=== PATIENT | female | born 1975 | race Caucasian/White ===

== ENCOUNTER → 2020-11-21 | Outpatient (CLI) | payer OTHER ==
--- NOTE | 2020-11-21 17:23 | RAD ---
Examination: US PELVIS W/TV History: Fibroids; Dysmenorrhea; Menorrhagia / History: Comparison/Correlation: None Findings: Transabdominal and transvaginal pelvic ultrasonogram was performed. Transvaginal technique was utilized better assess the adnexal structures. Uterus measures 9.37 x 7.0 cm x 4.4 centimeters. A fibroid is present at the superior right myometriu m measuring up to 1 cm diameter. At the posterior left myometrium, there is a 0.6 cm diameter fibroid .. Endometrial thickness of up to 0.7 cm is present. No fluid within the uterine cavity. Right ovary measures 2 cm x 1.9 cm x 1.7 cm . Left ovary measures 2.9 cm x 2.2 cm x 1.77. Normal ovar agustina flow evident. No brain masses. No pelvic free fluid. Impression: Small fibroids involving the myometrium. Electronically signed by: Cyril Hou MD (11/21/2020 5:20 PM) [id number]
== END ==
LOC: US 14:37
PROVIDERS: ATTEND Obstetrics & Gynecology
DX: D26.1 Other benign neoplasm of corpus uteri (principal); N94.6 Dysmenorrhea, unspecified; N92.0 Excessive and frequent menstruation with regular cycle
CPT/HCPCS: 76830; 76856

== ENCOUNTER → 2021-03-07 | Outpatient (CLI) | payer OTHER | LOC: MAMMO 15:29 | PROVIDERS: ATTEND Obstetrics & Gynecology | DX: Z12.31 Encounter for screening mammogram for malignant neoplasm of breast (principal) | CPT/HCPCS: 77063; 77067 ==

== ENCOUNTER 2021-10-15 15:55 | Emergency (ER) | payer OTHER ==
[~2021-10-15] VITALS: Ht 160 cm; Wt 63.6 kg
--- NOTE | 2021-10-15 16:08 | PHYS DOC ---
General Adult EDM: Chief Complaint: LOWER EXT PAIN HPI: HPI: Patient is a 46-year-old female here with left calf pain. She reports that she was walking and noticed some pain, but she has been able to ambulate without difficulty and did notice any severe pain until today, at work when she was walking and felt a "pop." She reports painful ambulation and painful weightbearing since then. She denies knee pain, thigh pain, hip pain. She denies ankle or foot pain. She denies any direct trauma or injury. When she palpates her calf, she feels pain. No swelling, redness or bruising reported. No chest pain or dyspnea reported. No numbness or tingling or motor weakness reported. Review of Systems: Review of Systems: Constitutional: Denies fever or chills Respiratory: Denies cough or shortness of breath Cardiovascular: Denies chest pain or edema GI: Denies abdominal pain, nausea, vomiting Musculoskeletal: Denies back pain or joint pain. Reports left calf pain. No swelling. Integument: Denies rash, no redness or bruising. Neurologic: Denies headache, focal weakness or sensory changes Psychiatric: Denies depression or anxiety Allergies: Allergies: Allergies Coded Allergies Type Severity Reaction Last Updated Verified No Known Drug Allergies 10/15/21 No Physical Exam: PE: Constitutional: Well developed, well nourished, no acute distress, non-toxic appearance. [] HENT: Normocephalic, atraumatic Neck: Trachea midline Cardiovascular: Well-perfused appearing, +2 dorsalis pedis and +2 posterior tibial pulses bilaterally. Lungs & Thorax: Respirations are nonlabored Skin: Warm, dry, no erythema, no rash. No bruising or swelling noted. Extremities: No deformity. Pelvis is stable. No knee tenderness. No bony tenderness. Mid soft tissue calf tenderness is noted. No palpable mass. No palpable cord. No warmth, erythema, no contusion, no hematoma. She is able to fully flex and extend her foot and ankle without difficulty. Prescott test normal. No ligamentous laxity or deformity of her knee, ankle or foot or digits. Neurologic: Alert and oriented X 3, normal motor function, normal sensory function, no focal deficits noted. [] Psychologic: Affect normal, judgement normal, mood normal. [] EKG: EKG: [] Radiology/Procedures: Radiology/Procedures: IMAGING REPORT Signed PATIENT: QUIN ANNA ACCOUNT: [id number] : 1975 LOCATION: ER AGE: 46 SEX: F EXAM STATUS: REG ER ORD. PHYSICIAN: MANNY RAINEY DO REASON: LLE pain PROCEDURE: VENOUS LOWER EXTREMITY LEFT INDICATION: Reason: LLE pain / Spl. Instructions: / History: COMPARISON: None. TECHNIQUE: Grayscale, color and doppler ultrasound images were obtained of the left lower extremity venous vasculature. LEFT: No thrombus identified in the common femoral vein, femoral vein, popliteal vein or visualized calf veins. IMPRESSION: * No thrombus identified in deep venous system of the left lower extremity. Electronically signed by: Linda Zhong MD (10/15/2021 4:56 PM) DESKTOP- [id number] DICTATED AND SIGNED BY: LINDA ZHONG MD DATE: 10/15/21 1654 CC: MANNY RAINEY DO; AILEEN GREENE DO, [facility] ~MTH0 0 Heart Score: C/O Chest Pain: No Risk Factors: Risk Factors: DM, Current or recent (<one month) smoker, HTN, HLP, family history of CAD, obesity. Risk Scores: Score 0 - 3: 2.5% MACE over next 6 weeks - Discharge Home Score 4 - 6: 20.3% MACE over next 6 weeks - Admit for Clinical Observation Score 7 - 10: 72.7% MACE over next 6 weeks - Early Invasive Strategies Course & Med Decision Making: Course & Med Decision Making Pertinent Labs and Imaging studies reviewed. (See chart for details) P.o. Stilwell given for pain. I discussed the findings, differential diagnosis and plan of care with her. I explained that I strongly suspect gastrocnemius tear. I recommend she follow-up with her primary care physician. She has a scheduled appointment on October 27 to see her PCP I told her to discuss outpatient MRI at that time, if symptoms persist. In the meantime, she should adhere to [facility] care. Will prescribe a small amount of her co for discharge. She may take [id number] NSAIDs as well. No current indication for further imaging, invasive exams or admission based on current presentation. Return precautions are given. Dragon Disclaimer: Dragon Disclaimer: This electronic medical record was generated, in whole or in part, using a voice recognition dictation system. Departure Departure: Impression: Primary Impression: Strain of left calf muscle Disposition: HOME / SELF CARE / HOMELESS Condition: STABLE Referrals: AILEEN GREENE DO, [facility] (PCP) Patient Instructions: Muscle Strain Additional Instructions: Use the medication as needed/as directed. Ice, rest and elevate your lower extremity. Return for severe swelling, redness, bruising, temperature 100.4 or higher, more severe uncontrolled pain or any other concerns. You likely have a tear of your gastrocnemius/calf muscle. Please keep your scheduled appointment with your primary care physician on October 27, you may wish to discuss outpatient MRI at that time if symptoms are still present. Scripts Hydrocodone Bit/Acetaminophen (HYDROCODONE-APAP 5-325 ) 1 Each Tablet 1 TAB PO PRN Q6HRS PRN for PAIN, #15 TAB 0 Refills Prov: MANNY RAINEY DO 10/15/21 MANNY RAINEY DO Oct 15, 2021 16:08
[2021-10-15] MEDS ORDERED: HYDROcodone/APAP 5/325MG 1 TAB TABLET PO ONE (16:30)
--- NOTE | 2021-10-15 16:58 | RAD ---
INDICATION: Reason: LLE pain / Spl. Instructions: / History: COMPARISON: None. TECHNIQUE: Grayscale, color and doppler ultrasound images were obtained of the left lower extremity v enous vasculature. LEFT: No thrombus identified in the common femoral vein, femoral vein, popliteal vein or visualized calf ve ins. IMPRESSION: * No thrombus identified in deep venous system of the left lower extremity. Electronically signed by: Alberto Bragg MD (10/15/2021 4:56 PM) [id number]
[2021-10-15] MEDS ORDERED: HYDR-2155 PO (17:29)
[2021-10-15 17:50] VITALS: BP 114/71
== END 2021-10-15 17:50 | disposition home or self-care (01) ==
LOC: ER 15:55
DX: S86.912A Strain of unspecified muscle(s) and tendon(s) at lower leg level, left leg, initial encounter (principal); X50.9XXA Other and unspecified overexertion or strenuous movements or postures, initial encounter; Y93.01 Activity, walking, marching and hiking; Y92.89 Other specified places as the place of occurrence of the external cause; Y99.8 Other external cause status
CPT/HCPCS: 93971; 99284

== ENCOUNTER 2022-02-21 09:45 | Emergency (ER) | payer OTHER ==
[~2022-02-21] VITALS: Ht 160 cm; Wt 66.4 kg
[~2022-02-21 09:45] MED LIST: HYDR-2155 PO
[2022-02-21] MEDS ORDERED: ONDANSETRON PF 4 MG/2 ML VIAL. IVP ONE (10:30)
[2022-02-21] MEDS ORDERED: IV NORMAL SALINE 1,000ML 1,000 ML IV ONE (10:30)
--- NOTE | 2022-02-21 11:01 | PHYS DOC ---
Past History Additional Past Medical Histor: HIRSUTISM Past Surgical History: Tubal ligation, Other Additional Past Surgical Histo: R SHOULDER; KIDNEY STONE REMOVED; WISDOM TOOTH Alcohol Use: Occasionally General Adult EDM: Chief Complaint: NAUSEA/VOMITING/DIARRHEA HPI: HPI: Patient is a 46-year-old female who presents with nausea/vomiting/diarrhea since Wednesday. Patient reports generalized abdominal pain. "I am not sure from having pain or if it is from the nausea and diarrhea". Patient reports she has vomited 4 times since Wednesday. Patient reports having diarrhea multiple times a day. Denies recent illness or antibiotics. Denies recent exposure to illness. denies fever. Patient reports taking Dramamine at home with no relief of symptoms. Decrease in appetite. History of anxiety and depression. Denies tobacco or drug use. Patient been fully vaccinated for COVID-19. Review of Systems: Review of Systems: ROS At least 10 ROS systems have been reviewed and are negative except as documented in the HPI. General: Negative except as outlined in HPI above. Skin: Negative except as outlined in HPI above. HEENT: Negative except as outlined in HPI above. Neck: Negative except as outlined in HPI above. Respiratory: Negative except as outlined in HPI above.. Cardiovascular: Negative except as outlined in HPI above. Abdomen: Negative except as outlined in HPI above. : Negative except as outlined in HPI above. Back/MSK: Negative except as outlined in HPI above. Neuro: Negative except as outlined in HPI above. Psych: Negative except as outlined in HPI above. Current Medications: Current Meds: Current Medications Medications (Trade) Dose Ordered Sig/Karyna Start Time Stop Time Status Last Admin Dose Admin Ondansetron HCl (Zofran) 4 mg 1X ONCE 02/21/22 10:30 02/21/22 10:31 DC Sodium Chloride 1,000 ml @ 1,000 mls/hr 1X ONCE 02/21/22 10:30 02/21/22 11:29 Allergies: Allergies: Allergies Coded Allergies Type Severity Reaction Last Updated Verified No Known Drug Allergies 10/15/21 No Physical Exam: PE: Constitutional: Well developed, well nourished, no acute distress, non-toxic appearance. [] HENT: bilateral external ears normal, oropharynx moist, no oral exudates, nose normal. [] Eyes: conjunctiva normal, no discharge. [] Neck: Normal range of motion, no tenderness, supple, no stridor. [] Cardiovascular:Heart rate regular rhythm, no murmur [] Lungs & Thorax: Bilateral breath sounds clear to auscultation [] Abdomen: Bowel sounds normal, soft, generalized tenderness on palpation Skin: Warm, dry, no erythema, no rash. [] Back: No tenderness, no CVA tenderness. [] Extremities: no clubbing, ROM intact, no edema. [] Neurologic: Alert and oriented X 3, normal motor function, normal sensory function, no focal deficits noted. [] Psychologic: Affect normal, judgement normal, mood normal. [] Current Patient Data: Vital Signs: Vital Signs Date Time Temp Pulse Resp B/P (MAP) Pulse Ox O2 Delivery O2 Flow Rate FiO2 02/21/22 09:45 97.5 75 16 106/61 (76) 100 Room Air EKG: EKG: [] Radiology/Procedures: Radiology/Procedures: [] Heart Score: C/O Chest Pain: No Risk Factors: Risk Factors: DM, Current or recent (<one month) smoker, HTN, HLP, family history of CAD, obesity. Risk Scores: Score 0 - 3: 2.5% MACE over next 6 weeks - Discharge Home Score 4 - 6: 20.3% MACE over next 6 weeks - Admit for Clinical Observation Score 7 - 10: 72.7% MACE over next 6 weeks - Early Invasive Strategies Course & Med Decision Making: Course & Med Decision Making Pertinent Labs and Imaging studies reviewed. (See chart for details) [] 46-year-old female presents with nausea/vomiting/diarrhea since Wednesday. Work-up in ER consisted of CBC, CMP, lipase, urinalysis. Patient given Zofran to help with symptoms. All labs unremarkable. Urine negative for infection. Patient still reporting abdominal pain. Patient given Bentyl and morphine to help with discomfort. CT abdomen pelvis ordered which was unremarkable. No acute findings. Discussed results with patient. Advised patient to take ibuprofen and Tylenol at home. Discussed return precautions at length with patient. Patient verbalized understanding of discharge instructions. Patient most likely has gastroenteritis which is contributing to her vomiting and diarrhea. Dragon Disclaimer: Dimitry Disclaimer: This electronic medical record was generated, in whole or in part, using a voice recognition dictation system. Departure Departure: Impression: Primary Impression: Nausea Additional Impression: Diarrhea Qualified Codes: R19.7 - Diarrhea, unspecified Disposition: HOME / SELF CARE / HOMELESS Referrals: AILEEN GREENE DO, [facility] (PCP) Patient Instructions: Diarrhea, [id number] Additional Instructions: You were seen in the emergency room for nausea and diarrhea. Symptoms were treated while in the ER. Sending you home with nausea medication. Return to the emergency room if you have worsening symptoms or concerns such as uncontrollable vomiting, increasing abdominal pain, uncontrolled fever. Otherwise follow-up with your PCP on Wednesday if symptoms have not improved. EMERGENCY DEPARTMENT GENERAL DISCHARGE INSTRUCTIONS Thank you for coming to [facility] (ED) today and trusting us with you care. We trust that you had a positivie experience in our Emergency Department. If you wish to speak to the department management, you may call the director at [phone]. YOUR FOLLOW UP INSTRUCTIONS ARE FOLLOWS: 1. Do you have a private Doctor? If you do not have a private doctor, please ask for a resource list of physicians or clinics that may be able to assist you with follow up care. 2. The Emergency Physician has interpreted your x-rays. The X-Ray specialist will also review them. If there is a change in the findings, you will be notified in 48 hours when at all possible. 3. A lab test or culture has been done, your results will be reviewed and you will be notified if you need a change in treatment. ADDITIONAL INSTRUCTIONS AND INFORMATION: 1. Your care today has been supervised by a physician who is specially trained in emergency care. Many problems require more than one evaluation for a complete diagnosis and treatment. We recommend that you schedule your follow up appointment as recommended to ensure complete treatment of you illness or injury. If you are unable to obtain follow up care and continue to have a problem, or if your condition worsens, we recommend that you return to the ED. 2. We are not able to safely determine your condition over the phone nor are we able to give sound medical advice over the phone. For these safety reasons, if you call for medical advice we will ask you to come to the ED for further evaluation. 3. If you have any questions regarding these discharge instructions please call the ED at [phone]. SAFETY INFORMATION: In the interest of safety, wellness, and injury prevention; we encourage you to wear your sealbelt, if you smoke; quite smoking, and we encourage family to use a protective helmet for bicycling and other sporting events that present an increased risk for head injury. IF YOUR SYMPTOMS WORSEN OR NEW SYMPTOMS DEVELOP, OR YOU HAVE CONCERNS ABOUT YOUR CONDITION; OR IF YOUR CONDITION WORSENS WHILE YOU ARE WAITING FOR YOUR FOLLOW UP APPOINTMENT; EITHER CONTACT YOUR PRIMARY CARE DOCTOR, THE PHYSICIAN WHOSE NAME AND NUMBER YOU WERE GIVEN, OR RETURN TO THE ED IMMEDIATELY. Scripts Ondansetron (ONDANSETRON ODT) 4 Mg Tab.rapdis 1 TAB PO PRN Q6-8HRS for nausea for 5 Days, #16 TAB Prov: ELSA COCHRAN APRN 02/21/22 ELSA COCHRAN APRN Feb 21, 2022 11:01
[2022-02-21 11:53] LABS: BASO # 0.1 x10^3/uL (0.0-0.2); BASO % 1 % (0-3); EOS % 0 % (0-3); HEMATOCRIT 43.4 % (36.0-47.0); LYMPH # 0.4 x10^3/uL (1.0-4.8); LYMPH % 6 % (24-48); MEAN CORPUSCULAR HEMOGLOBIN 32 pg (25-35); MEAN CORPUSCULAR HGB CONC 35 g/dL (31-37); MEAN CORPUSCULAR VOLUME 92 fL (79-100); MONO # 0.5 x10^3/uL (0.0-1.1); MONO % 8 % (0-9); NEUT # 4.9 x10^3uL (1.8-7.7); NEUT % 84 % (31-73); PLATELET COUNT 253 x10^3/uL (140-400); RED BLOOD COUNT 4.71 x10^6/uL (3.50-5.40); RED CELL DISTRIBUTION WIDTH 12.2 % (11.5-14.5); WHITE BLOOD COUNT 5.8 x10^3/uL (4.0-11.0)
[2022-02-21 12:01] LABS: CLARITY,URINE HAZY; COLOR,URINE YELLOW
[2022-02-21 12:02] LABS: BACTERIA,URINE 0 /HPF (0-FEW); GLUCOSE,URINE NEG (NEG); NITRITE,URINE NEG (NEG); RBC,URINE 0 /HPF (0-2); SQUAMOUS EPITHELIAL CELL,UR OCC /LPF; WBC,URINE 0 /HPF (0-4)
[2022-02-21 12:04] LABS: CREATININE 0.7 mg/dL (0.6-1.0); GFR 90.9; POTASSIUM 4.6 mmol/L (3.5-5.1)
[2022-02-21 12:10] LABS: ALBUMIN 3.7 g/dL (3.4-5.0); ALBUMIN/GLOBULIN RATIO 1.2 (1.0-1.7); TOTAL BILIRUBIN 0.5 mg/dL (0.2-1.0); TOTAL PROTEIN 6.9 g/dL (6.4-8.2)
[2022-02-21] MEDS ORDERED: MORPHINE SULFATE 4 MG/ML DISP.SYRIN. IV ONE (13:30)
[2022-02-21] MEDS ORDERED: DICYCLOMINE 20 MG/2 ML VIAL. IM ONE (13:30)
[2022-02-21 13:38] VITALS: BP 107/69
--- NOTE | 2022-02-21 15:11 | RAD ---
Abdominal and Pelvis CT, Without Contrast: History: Mid abdominal pain nausea and vomiting Comparison: None. Procedure: Axial images are obtained of the abdomen and pelvis, without IV or oral contrast. Oral Contrast: No Findings: Evaluation of solid organs is limited without contrast. The gallbladder appears normal. The appendix is normal. Liver: Normal. Spleen: Normal. Pancreas: Normal. Adrenal Glands: Normal. Kidneys: Normal. There is no free air or free fluid. There is no lymphadenopathy. The urinary bladder appears normal. There is no pericolonic inflammation identified. Impression: No acute findings. End impression PQRS Compliance Statement: One or more of the following individualized dose reduction techniques were utilized for this examinat ion: 1. Automated exposure control 2. Adjustment of the mA and/or kV according to patient size 3. Use of iterative reconstruction technique Electronically signed by: Frandy Kruger III, MD (02/21/2022 3:08 PM) [facility]
[2022-02-21] MEDS ORDERED: ONDA4TAB12 PO (16:38)
== END 2022-02-21 16:42 | disposition home or self-care (01) ==
LOC: ER 09:45
DX: R11.2 Nausea with vomiting, unspecified (principal); R19.7 Diarrhea, unspecified; R10.84 Generalized abdominal pain; Z98.51 Tubal ligation status
CPT/HCPCS: 36415; 74176; 80053; 81001; 81025; 83690; 83735; 85025; 96361; 96372; 96374; 96375; 99284; J0500; J2270; J2405; J7030